=== PATIENT | female | born 1950 | race Caucasian/White ===

== ENCOUNTER 2018-03-13 11:58 | Emergency (ER) | payer MEDICARE, BC ==
[~2018-03-13] VITALS: Ht 154.9 cm; Wt 87.0 kg
[2018-03-13 13:54] VITALS: BP 137/75
== END 2018-03-13 13:55 | disposition home or self-care (01) ==
LOC: ER 12:00
DX: S05.12XA Contusion of eyeball and orbital tissues, left eye, initial encounter (principal); S80.02XA Contusion of left knee, initial encounter; S60.512A Abrasion of left hand, initial encounter; S09.90XA Unspecified injury of head, initial encounter; W18.49XA Other slipping, tripping and stumbling without falling, initial encounter; Y93.01 Activity, walking, marching and hiking; Y92.89 Other specified places as the place of occurrence of the external cause; Y99.9 Unspecified external cause status
CPT/HCPCS: 99283

== ENCOUNTER 2020-09-05 05:45 | Emergency (ER) | payer MEDICARE, BC ==
[~2020-09-05] VITALS: Ht 154.9 cm; Wt 86.4 kg
[2020-09-05 06:37] LABS: BASOPHILS # (AUTO) 0.1 X10'3 (0-0.2); BASOPHILS % (AUTO) 0.6 % (0-1); EOSINOPHILS # (AUTO) 0.1 X10'3 (0-0.9); EOSINOPHILS % (AUTO) 1.2 % (0-6); HEMATOCRIT 40.7 % (35.0-45.0); HEMOGLOBIN 13.6 g/dl (12.0-16.0); LYMPHOCYTES # (AUTO) 1.7 X10'3 (1.1-4.8); LYMPHOCYTES % (AUTO) 18.4 % (21-51); MEAN CORPUSCULAR HEMOGLOBIN 28.2 PG (27.0-31.0); MEAN CORPUSCULAR HGB CONC 33.4 g/dL (33.0-36.5); MEAN CORPUSCULAR VOLUME 84.4 FL (78-98); MONOCYTES # (AUTO) 0.5 X10'3 (0-0.9); MONOCYTES % (AUTO) 5.7 % (2-12); NEUTROPHILS # (AUTO) 6.8 X10'3 (1.8-7.7); NEUTROPHILS % (AUTO) 74.1 % (42-75); PLATELET COUNT 239 X10'3 (140-440); RED BLOOD COUNT 4.82 X10'6 (4.20-5.60); RED CELL DISTRIBUTION WIDTH 13.4 % (11.5-14.5); WHITE BLOOD COUNT 9.2 X10'3 (4.5-11.0)
[2020-09-05 06:46] LABS: ALANINE AMINOTRANSFERASE 37 U/L (12-78); ALBUMIN 3.9 G/DL (3.4-5.0); ALBUMIN/GLOBULIN RATIO 1.1 (1.1-1.5); ALKALINE PHOSPHATASE 149 IU/L (46-116); ANION GAP 13 (8-16); ASPARTATE AMINO TRANSFERASE 21 U/L (10-37); BILIRUBIN,TOTAL 0.1 MG/DL (0.1-1.0); BLOOD UREA NITROGEN 25 MG/DL (7-18); BUN/CREATININE RATIO 31.6 (6.6-38.0); CALCIUM 9.2 MG/DL (8.5-10.1); CHLORIDE 103 MMOL/L (99-107); CREATININE 0.79 MG/DL (0.40-0.90); GLUCOSE 146 MG/DL (70-104); LIPASE 439 U/L (73-393); POTASSIUM 3.4 MMOL/L (3.5-5.1); SODIUM 140 MMOL/L (135-145); TOTAL CARBON DIOXIDE 24.2 MMOL/L (24-32); TOTAL PROTEIN 7.5 G/DL (6.4-8.2); eGFR 72 ML/MIN
[2020-09-05] MEDS ORDERED: morphine 4 MG/ML inj SYRINge IV PRN (06:50)
[2020-09-05] MEDS ORDERED: ondansetron/PF 4mg/2ml inj IV ONE (06:50)
[2020-09-05] MEDS ORDERED: normal saline 1000ML IV soln IVB ONE (06:50)
[2020-09-05] MEDS ORDERED: HYDROmorphone 1 mg/ml syringe IV ONE (07:50)
[2020-09-05 08:16] LABS: TROPONIN I < 0.04 NG/ML (0.0-0.05)
[2020-09-05 08:35] VITALS: BP 121/70
--- NOTE | 2020-09-05 08:41 | NUR ---
Pt reports decrease in pain, however states she feels "out of herself" secondary to the medication.
[2020-09-05] MEDS ORDERED: ONDA4TAB6 PO (08:50)
[2020-09-05] MEDS ORDERED: HYDR-3964 PO (12:42)
== END 2020-09-05 09:40 | disposition home or self-care (01) ==
LOC: ER 05:45
DX: K80.20 Calculus of gallbladder without cholecystitis without obstruction (principal); Q44.6 Cystic disease of liver; K92.0 Hematemesis; Z79.899 Other long term (current) drug therapy
CPT/HCPCS: 36415; 74176; 80053; 83690; 84484; 85025; 93005; 96361; 96374; 96375; 99285; J1170; J2270; J2405; J7030; 99283; 99284